=== PATIENT | female | born 1940 | race Caucasian/White ===

== ENCOUNTER 2023-07-15 10:01 | Inpatient (IN) | payer MEDICARE, OTHER, SELFPAY ==
[2023-07-14] VITALS (9 sets, daily range): BP systolic 112–179; BP diastolic 69–108; BMI 22.5; BMI 21.0
[2023-07-14 11:11] LABS: % Basophils 0.4 % (0-2); % Immature Granulocytes 0.4 % (0-0.5); % Lymphocytes 2.4 % (20.5-51.1); % Monocytes 3.8 % (1.7-9.3); Absolute Basophils 0.1 10^3/uL (0-0.2); Absolute Immature Granulocytes 0.1 10^3/uL (0-0.05); Absolute Lymphocytes 0.3 10^3/uL (1.2-3.4); Absolute Monocytes 0.5 10^3/uL (0.1-0.6); Absolute Neutrophils 11.4 10^3/uL (1.4-6.5); Hematocrit 48.7 % (37.0-47.0); Hemoglobin 16.3 g/dL (12.0-16.0); Mean Corp Hgb Conc. 33.5 g/dL (33.0-37.0); Mean Corpuscular Hgb 31.3 pg (27.0-31.0); Mean Corpuscular Volume 93.7 fL (81.0-99.0); Mean Platelet Volume 9.9 fL (7.4-10.4); Nucleated Red Blood Cells % 0 %; Platelet Count 213 10^3/uL (130-400); Red Cell Dist. Width 13.4 % (11.5-14.5); White Blood Cell Count 12.2 10^3/uL (4.8-10.8)
[2023-07-14 11:24] LABS: ALT (SGPT) 24 U/L (0-35); AST (SGOT) 41 U/L (14-36); Albumin 4.5 g/dl (3.5-5.0); Alkaline Phosphatase 99 U/L (38-126); Blood Urea Nitrogen 12 mg/dl (7-17); Calcium 10.1 mg/dl (8.4-10.2); Carbon Dioxide 29 mmol/L (22-30); Chloride 99 mmol/L (98-107); Glucose 108 mg/dl (70-99); Potassium 4.8 mmol/L (3.5-5.1); Sodium 137 mmol/L (135-145); Total Bilirubin 1.4 mg/dl (0.2-1.3); Total Protein 7.4 g/dl (6.3-8.2); eGFR > 60.00
--- NOTE | 2023-07-14 11:52 | ED.GENMED ---
History of Present Illness
General
Chief Complaint: Weakness
Source: patient
Exam Limitations: none
Time Seen by Provider: 07/14/23 11:05
Nursing documentation reviewed up to this point in time: agreed with
Travel History
Have you had any contact with someone who has COVID-19?: No
Do you have any symptoms of coronavirus? Fever > 100 degrees, chills, cough, shortness of breath, sore throat, loss of taste or smell, muscle aches, or headache?: No
History of Present Illness
History of Present Illness:
Patient presents to ED from home after she was found lying on the floor of her bedroom, by her friend, who visits her daily. Patient states that she was walking back from the restroom when she felt weak and fell down. Patient attempted to crawl
back into her bed, but was unable to make it. Patient unsure if she passed out, but also admits to having fallen multiple times recently. Patient currently is on antibiotics for UTI. Denies loss of appetite. Denies headache. Denies dizziness.
Denies chest pain or shortness of breath. Denies abdominal pain. Denies nausea or vomiting. Patient does admit to loose bowels recently.
Past History
Past History
ED Past Medical History: CVA (TIA), GERD (on pepcid), Psychiatric (a/d), Other (Parkinsons ds) and Other (Migraines); Negative Asthma or NIDDM
ED Past Surgical History: None
Social History
Tobacco: Former smoker
Alcohol: Daily (Wine 2 glasses)
Drug: None
Personal:
Living: alone
Employment: Retired
Family History
Family History: Other (Noncontributory)
Review of Systems
Review of Systems
Allergies reviewed?: Yes
All Other Systems: ROS reviewed and negative except as documented in HPI and ROS
Constitutional: Reports no symptoms; Denies fever
EENT: Reports no symptoms
Respiratory: Reports no symptoms
Cardiac: Reports no symptoms
ABD/GI: Reports diarrhea; Denies abdominal pain, nausea or vomiting
: Reports frequency and incontinence
Musculoskeletal: Reports no symptoms
Skin: Reports no symptoms
Neurological: Reports no symptoms
Phy Exam
Physical Exam
Physical Exam:
Physical Exam
General: mild distress, not acutely ill. afebrile. weak appearing
Head: nc/at. eomi
Neck: supple. normal range of motion. no midline tenderness.
Heart: s1/s2 regular rate and rhythm, no murmur. equal radial pulses.
Lungs: no acute respiratory distress. clear bilaterally
Abdomen: normal bowel sounds. not tender.
Neuro: alert and oriented. no focal neurological deficits
Skin: no rash
Psychiatric: well kept. interactive and cooperative
Extremities: no edema. no calf tenderness.
Course
Orders/Labs/Results
Orders:
Orders
07/14/23 11:01
Complete Blood Count/With Diff Urgent
Comprehensive Metabolic Panel Urgent
Creatine Phosphokinase Urgent
Comment: ADD ON
Magnesium Urgent
Comment: ADD ON
07/14/23 11:13
Add On- LAB Urgent
Tests Added?: magnesium, CPK
07/14/23 11:54
CT Cervical Spine W/o Iv Contr Urgent
Comment:
Reason For Exam: trauma with neck pain
CT Head W/o Iv Contrast Urgent
Comment:
Reason For Exam: syncope with trauma
07/14/23 11:55
Lactic Acid Urgent
Urinalysis Reflex To Culture Urgent
Date Specimen was Collected: 07/14/23
Time Specimen was Collected: 11:53
Blood Culture Q30M
SARA Source: Blood/Venous
Specimen Description:
Comment: FROM 2 SEPARATE SITES
Urine Culture Urgent
SARA Source: U
Specimen Description:
Date Specimen was Collected: 07/14/23
Time Specimen was Collected: 11:53
07/14/23 11:58
Electrocardiogram (*1) Urgent
Reason for Study: Syncope
EKG- Treatment ONCE
07/14/23 12:44
CT Abd/pelvis W Iv Cont Urgent
Comment:
Reason For Exam: LLQ pain w fever
07/14/23 13:10
Norovirus by PCR Urgent
SARA Source: Feces/Stool
Specimen Description:
Stool Culture Urgent
SARA Source: Feces/Stool
Specimen Description:
07/14/23 13:32
Add On - Microbiology Urgent
Tests Added?: urine culture
07/14/23 13:45
CefTRIAXone [Rocephin] 1,000 mg IV NOW STA
07/14/23 14:45
0.9% Sodium Chloride 1000 ml [Nss] 1,000 ml IV 100 mls/hr
07/14/23 Dinner
Regular
At Your Request: Limited Participation
07/14/23 15:51
Admit/Transfer Patient As Directed
Co-Sign Provider:
Level of Care: Observation services
Assign to:: Telemetry
Physician / Group: Hospitalist
Diagnosis: Falls, Weakness
Reason for Telemetry: Other
Other Reason for Telemetry: falls
Date to Stop Telemetry: 07/16/23
Time to Stop Telemetry: 11:00
07/14/23 15:55
Code Status As Directed
Resuscitation Status: Do not resuscitate
Reached after discussion with pt or family/Healthcare POA: Yes
Physician note:: Son and DIL at bed side
DNR Bracelet Application ONCE
07/14/23 16:55
0.9% Sodium Chloride 1000 ml [Nss] 1,000 ml IV 40 mls/hr
07/14/23 16:55
NEUROLOGY CONSULT Routine
Consulting Provider: Rayray Stone
Was physician already notified: Yes
Reason for consult: PD , falls
PSYCHIATRY CONSULT Routine
Consulting Provider: Blanca Light
Was physician already notified: Yes
Reason for consult: depression
Activity As Directed
Activity Level: Ambulate
With Assistance
Orthostatic Vital Signs As Directed
Orthostatic VS Frequency: BID
Vital Signs As Directed
Frequency: Per unit guidelines
Ot Eval And Treat Routine
Pt Eval And Treat Routine
Activity Level: Encourage Progressive Amb
DX Deep Vein Thrombosis Video Routine
07/14/23 17:07
Troponin I Q6H
Blood Culture Q30M
SARA Source: Blood/Venous
Specimen Description:
Comment: FROM 2 SEPARATE SITES
07/14/23 18:00
Enoxaparin Sodium [Lovenox] 40 mg SC QPM
07/14/23 20:00
Carbidopa/Levodopa [Sinemet 25-100] 1 tablet PO BID@1400,2000
07/14/23 22:00
Cetirizine HCl [Zyrtec] 10 mg PO HS
07/14/23 22:55
Troponin I Q6H
07/15/23 06:00
Basic Metabolic Panel IN AM
Complete Blood Count/No Diff IN AM
Creatine Phosphokinase IN AM
Magnesium IN AM
TSH IN AM
Vitamin B12 IN AM
07/15/23 08:00
Aspirin Low Dose EC [Aspir Low (Enteric Coated)] 81 mg PO DAILY
Bupropion(24Hr)Extended Releas [WELLBUTRIN XL (24 hour extended release)] 150 mg PO DAILY
Carbidopa/Levodopa [Sinemet 25-100] 1.5 tablet PO DAILY
Donepezil [Aricept] 5 mg PO DAILY
Venlafaxine Extended Release [Effexor Xr] 75 mg PO DAILY
07/16/23 11:00
DC Protocol for Telemetry ONCE
07/20/23 08:00
Ergocalciferol [Drisdol (Vitamin D2)] 50,000 units PO TU@0800
Abnormal Lab Results
07/14/23 07/14/23
11:01 11:55
WBC 12.2 H 10^3/uL
(4.8-10.8)
Hgb 16.3 H g/dL
(12.0-16.0)
Hct 48.7 H %
(37.0-47.0)
MCH 31.3 H pg
(27.0-31.0)
Abs Immat Gran (auto) 0.1 H 10^3/uL
(0-0.05)
Absolute Neuts (auto) 11.4 H 10^3/uL
(1.4-6.5)
Absolute Lymphs (auto) 0.3 L 10^3/uL
(1.2-3.4)
Neutrophils % 93.0 H %
(42.2-75.2)
Lymphocytes % 2.4 L %
(20.5-51.1)
Glucose 108 H mg/dl
(70-99)
Total Bilirubin 1.4 H mg/dl
(0.2-1.3)
AST 41 H U/L
(14-36)
Creatine Kinase 478 H U/L
(30-135)
Urine Ketones Trace A
(Negative)
07/14/23 11:01
07/14/23 11:01
Vital Signs
Initial and Last Documented VS:
Initial Vital Signs
Temp Pulse Resp BP Pulse Ox
98.1 F 108 20 139/69 97
07/14/23 10:44 07/14/23 10:44 07/14/23 10:44 07/14/23 10:44 07/14/23 10:44
Last Documented Vital Signs
Temp Pulse Resp BP Pulse Ox
99.7 F 98 16 162/88 94
07/14/23 19:49 07/14/23 19:49 07/14/23 19:49 07/14/23 19:49 07/14/23 19:49
MDM/Problems Addressed
MDM/Problems Addressed:
CT head: No acute findings. CT abdomen pelvis ordered secondary to diarrhea along with mild left-sided abdominal pain.
Patient with multiple falls recently, concerning for dehydration due to poor oral intake vs ongoing UTI vs diarrhea. Initial UA may be inconclusive due to patient having taken multiple doses of bactrim as outpatient.
Urine cx and blood cx pending.
*Critical Care Note
Total Time (30-74mins, 75-104mins- exclusive of procedures): Not Applicable
ED Attending Note
-
Portions of this chart may have been created with voice recognition software.� Occasional wrong word or��sound alike� substitutions may have occurred due to the inherent limitations of voice recognition software.
Discharge Plan
Departure
Patient Disposition: Admit
Date of Disposition: 07/14/23
Time of Disposition: 13:55
Admit to: Med/Surg
Presentation/result/management discussed w/ accepting MD/DO: Hospitalist
Discharge Problem:
Weakness, Fever, Diarrhea
Interventions
Interventions:
*Risk Screen - Suicide Last Done: 07/14/23 10:44
*General Assessment Last Done: 07/14/23 10:44
*Neglect/Abuse Screening Last Done: 07/14/23 10:44
*ED COVID-19 Vaccine History Last Done: 07/14/23 12:00
*Nursing Disposition Last Done: 07/14/23 16:42
ED- Cardiac Assessment Last Done: 07/14/23 12:00
ED- Neurological Assessment Last Done: 07/14/23 12:00
ED- Pulmonary Assessment Last Done: 07/14/23 12:00
Discharge Date and Time
Discharge Date/Time: 07/14/23 16:42
[2023-07-14 12:12] LABS: Urine Albumin Negative (Neg - Trace); Urine Bilirubin Negative (Negative); Urine Character Clear (Clear); Urine Color Yellow; Urine Glucose Negative (Negative); Urine Ketone Trace (Negative); Urine Leukocyte Negative (Negative); Urine Nitrite Negative (Negative); Urine Occult Blood Negative (Negative); Urine Specific Gravity 1.015 (<1.030); Urine Urobilinogen Negative (Neg - 1+); Urine pH 6.5 (5.0-9.0)
[2023-07-14 12:39] LABS: Lactic Acid 1.1 mmol/L (0.7-2.0)
[2023-07-14 12:43] LABS: Creatine Phosphokinase 478 U/L (30-135)
[2023-07-14] MEDS: ROCEPHIN 1000 MG IV (14:10)
--- NOTE | 2023-07-14 15:07 | HPS.HSE ---
Family Physician
-
Family Physician: Yasmeen Lopez
Chief Complaint
-
Weakness
History of Present Illness
80-year-old female was found laying on the floor of her bedroom. Patient was walking from the bathroom and felt weak and fell. Has been falling lately. She is on antibiotics to treat a UTI now. Per discussion with the family she has been
depressed lately. Also very tired appearing. Usually has a good appetite. Reportedly she had a temperature of 100.3 at home however in the ER temperature was normal. She has a caregiver from 9:00 in the morning to 2:00 Pm and then 5-8 pm in the
evening. She has a bedside commode but she does not use it often as she should.
Medical History
Past Medical History
Past Medical History: Reports Other
Additional Past Medical History:
Migraine, Parkinson disease, history of stroke, diverticulitis, history of GI bleed, arthritis, anxiety and depression
Past Surgical History: Reports Other
Additional Past Surgical History:
Root canal treatment
Social History
Tobacco: Former Smoker
Alcohol: None
Living: Alone
Employment: Retired
Family History
Family History: Not pertinent
Allergies / Home Medications
Allergies reflects when Allergies were last updated in [employer].
Home Medications with original date entered in [employer]
Allergy/Medication List:
Allergies
Allergy/AdvReac Type Severity Reaction Status Date / Time
No Known Allergies Allergy Verified 07/14/23 10:59
Home Medications
aspirin 81 mg tablet,delayed release 81 mg PO HS Blood clot prevention/tx 09/12/21
donepezil 5 mg tablet (Aricept) 5 mg PO DAILY Neurological Condition 09/13/21
acetaminophen 325 mg tablet (Tylenol) 650 mg PO Q6HPRN PRN MILD PAIN 01/20/23
bupropion HCl 150 mg 24 hr tablet, extended release 150 mg PO DAILY Mental Health 01/20/23
carbidopa 25 mg-levodopa 100 mg tablet 1 tab PO BID@1400,2000 Neurological Condition 01/20/23
carbidopa 25 mg-levodopa 100 mg tablet 1.5 tab PO DAILY Neurological Condition 01/20/23
cetirizine 10 mg tablet 10 mg PO NOON Allergies 01/20/23
ergocalciferol (vitamin D2) 1,250 mcg (50,000 unit) capsule 1,250 mcg PO TU@0800 Supplement 01/20/23
venlafaxine 75 mg capsule,extended release 24 hr 75 mg PO DAILY Mental Health 01/20/23
sulfamethoxazole 800 mg-trimethoprim 160 mg tablet (Bactrim DS) 1 tab PO BID 07/14/23
Review of Systems
-
Unable to obtain full review of systems at this time due to: Dementia
Respiratory: Denies Trouble Breathing
Cardiac: Denies Chest Pain or Palpitations
Musculoskeletal: Reports Other (Tendinitis of the shoulders)
Neurological: Reports Dizzy; Denies Headache
Physical Exam
Vital Signs
Vital Signs
Temp Pulse Resp BP Pulse Ox
98.1 F 108 20 139/69 97
07/14/23 10:44 07/14/23 10:44 07/14/23 10:44 07/14/23 10:44 07/14/23 10:44
Physical Exam
General: Conversant
Respiratory: Clear
Cardiac: S1/S2 and Regular Rhythm
GI: Soft, Non Tender and Normal Bowel Sounds
Musculoskeletal: Other (No spine tenderness)
Skin: Warm
Neuro: Awake, Alert, No Motor Deficits, Cranial Nerves Intact and Other (Cogwheel rigidity)
Laboratory Results
-
07/14/23 11:01
07/14/23 11:01
Laboratory Results
Lactic Acid 1.1 mmol/L (0.7-2.0) 07/14/23 11:55
Total Bilirubin 1.4 mg/dl (0.2-1.3) H 07/14/23 11:01
AST 41 U/L (14-36) H 07/14/23 11:01
ALT 24 U/L (0-35) 07/14/23 11:01
Alkaline Phosphatase 99 U/L (38-126) 07/14/23 11:01
Data Reviewed
-
Diagnostic Radiology: Image Personally Visualized and interpreted (Chest x-ray-no infiltrates)
CT Scan: Report Reviewed by me (CT scan of the abdomen and pelvis-Limited evaluation of intestinal tract due to lack of oral contrast and positive for intra-abdominal fat. This sigmoid diverticulosis. Mild acute inflammatory process of the sigmoid
colon cannot be excluded. Simple right renal cysts. Subcentimeter low-attenuatio) and Other (Head CT-no acute intracranial changes. Diffuse cortical atrophy with nonspecific white matter changes. CT scan of the cervical spine-slight reversal of
the normal cervical lordotic curvature. Prominent osseous degenerative changes. No fracture)
Medical Tests (Nuc Med, Echo, EKG etc): Image Personally Visualized and interpreted (EKG-sinus tachycardia with PVCs nonspecific ST-T changes.)
Impression/Plan
-
IMPRESSION/PLAN:
# Multiple falls
Patient has history of Parkinson disease
Check orthostatic vital signs
Blood cultures, urine cultures
Continue Sinemet
Neurology evaluation
Check B12, TSH
# Recently treated' UTI'
Patient could not give a urine sample but she was empirically treated with Bactrim
Hold off on any further Bactrim
Await culture
# Depression
Continue Wellbutrin, venlafaxine
Psychiatry to evaluate
#Parkinson disease-continue levodopa carbidopa
# History of migraines
# History of TIA-ASA
# Dementia-continue Aricept
# History of diverticular bleeding
# Ex-smoker
# DNR status per discussion with son and [id number]
Discussed with son and [id number] at bedside in detail all questions answered.
Discussed about observation admission-Discussed with Physician advisor also UR
[2023-07-14] MEDS: NSS 1000 IV ×2 (16:16→20:27)
[2023-07-14 17:52] LABS: Troponin I 0.017 ng/ml
[2023-07-14 19:32] LABS: COVID-19 Antigen Negative (Negative)
[2023-07-14] MEDS: ZYRTEC 10 MG PO (20:26)
[2023-07-14] MEDS: SINEMET 25-100 1 TABLET PO (20:26)
[2023-07-14] MEDS: LOVENOX 40 MG SC (20:26)
[2023-07-15] VITALS (10 sets, daily range): BP systolic 101–167; BP diastolic 56–109; PULSE 76–82; O2SAT 97
[2023-07-15] MEDS: TYLENOL 650 MG PO ×2 (03:38→16:35)
--- NOTE | 2023-07-15 07:05 | CON.NEURO4 ---
Consultation - Neurology 4
-
CONSULTING PHYSICIAN: Monty Vargas
REFERRING PHYSICIAN: ER
DICTATED BY: Monty Vargas
DATE/TIME OF REQUEST: 07/15/23
DATE/TIME OF CONSULTATION: 07/15/23
Reason for Consultation: Parkinson's disease, falls
History of Present Illness:
Patient is an 83 year old woman with history of Parkinson's disease, stroke, depression presenting to hospital after a fall. Patient has poor recollection of recent events but is able to recall a fall at home without any pains or injuries she is
aware of. She thinks had another fall in the past few weeks. She is not able to give details as to any precipitants to the fall. Denies lightheadedness or syncope with standing. Denies abdominal pain, dysuria, vomiting, cough or congestion. She
reports she sees a neurologist at [facility] regularly. She says has been on stable dose of Carbidopa/Levodopa with no recent changes in medications for Parkinson's disease. Has used walker for the past 2 months. Parkinson's disease was diagnosed about
4-5 years ago. Denies hallucinations. had two low grade fevers to 100.4 and 100.5 and is getting infectious workup, UA negative, had been on some recent antibiotics.
Past Medical History: Parkinson's disease, history of stroke, GI bleed, arthritis, depression
Surgical History: Root canal treatment
Family History: Non-contributory
Social History: Lives at home alone, has sons, no tobacco or alcohol, retired
Allergies: No known drug allergies
Review of Symptoms:
Patient denies any fever, headache, chest pain, shortness of breath, GI or symptoms.
Physical Exam:
Elderly woman, no distress, no head or neck trauma, oropharnyx clear, eyes clear, heart rate regular, breathing unlabored, abdomen soft non-tender, no lower extremity edema or rash
Neurologic Examination:
Drowsy, awakens to voice, poor recent memory recall, spontaneous speech is fluent, no naming difficulty, comprehends and obeys 2 step commands, oriented to hospital, month, not year,
CN 2-12 are normal
Motor examination shows moderate bradykinesia, minimal rigidity on the arms bilaterally, no resting tremor, power is 4/5 througout and symmetric, no pronator drift
Sensory exam normal to light touch
Reflexes absent throughout
Normal finger to nose bilaterally
Gait exam deferred
Neuro Imaging: CT head non contrast unremarkable
Impressions
1. Parkinson's disease, at least 2 recent falls. Probably cognitive impairment is present. Likely from chronic ambulatory function, requiring use of walker for past few months. Febrile illness could be playing a role in generalized weakness.
2. History of stroke on aspirin. No signs that are suggestive of a new focal neurologic deficit arousing concern for stroke, CT head non contrast unremarkable.
3. Low grade fever
Recommendations:
1. Check orthostatic vital signs
2. Continue aspirin 81 mg daily
3. Goal normotension
4. Minimize sedating medications given at risk for delirium, keep normal sleep wake cycle
5. Avoid antipsychotics which generally can worsen's Parkinson's symptoms
6. Not recommending further brain imaging
7. Keep home dosing of Parkinson's medications the same, examination today not showing significant rigidity
8. Workup fever
Discussed patient care with: Patient
[2023-07-15 07:39] LABS: Hematocrit 44.9 % (37.0-47.0); Hemoglobin 14.6 g/dL (12.0-16.0); Mean Corp Hgb Conc. 32.5 g/dL (33.0-37.0); Mean Corpuscular Hgb 30.9 pg (27.0-31.0); Mean Corpuscular Volume 95.1 fL (81.0-99.0); Mean Platelet Volume 10.3 fL (7.4-10.4); Platelet Count 163 10^3/uL (130-400); Red Blood Cell Count 4.72 10^6/uL (4.20-5.40); Red Cell Dist. Width 13.7 % (11.5-14.5); White Blood Cell Count 6.7 10^3/uL (4.8-10.8)
[2023-07-15] MEDS: WELLBUTRIN XL (24 hour extended release) 150 MG PO (08:20)
[2023-07-15] MEDS: EFFEXOR XR 75 MG PO (08:20)
[2023-07-15] MEDS: SINEMET 25-100 1.5 TABLET PO (08:21)
[2023-07-15] MEDS: ASPIR LOW (ENTERIC COATED) 81 MG PO (08:21)
[2023-07-15] MEDS: ARICEPT 5 MG PO (08:22)
[2023-07-15 09:08] LABS: Blood Urea Nitrogen 12 mg/dl (7-17); Calcium 8.9 mg/dl (8.4-10.2); Carbon Dioxide 26 mmol/L (22-30); Chloride 104 mmol/L (98-107); Creatine Phosphokinase 274 U/L (30-135); Estimated Creatinine Clearance 35 ml/min; Glucose 87 mg/dl (70-99); Magnesium 2.1 mg/dl (1.6-2.3); Potassium 3.8 mmol/L (3.5-5.1); Sodium 134 mmol/L (135-145); eGFR > 60.00
[2023-07-15 09:56] LABS: ALT (SGPT) 17 U/L (0-35); AST (SGOT) 45 U/L (14-36); Albumin 3.3 g/dl (3.5-5.0); Alkaline Phosphatase 83 U/L (38-126); Direct Bilirubin 0.1 mg/dl (0.0-0.4); Total Bilirubin 0.6 mg/dl (0.2-1.3); Total Protein 5.9 g/dl (6.3-8.2)
--- NOTE | 2023-07-15 10:00 | W.PN.UPDATE ---
Update Note
Progress Note Update
Pt has a fever and needs work up. Cultures pending. ID eval.
CPK level trending down.
Change to IN patient
--- NOTE | 2023-07-15 10:18 | PTCARENOTE ---
Assumed care of patient at AM shift change. AAOx1, oriented to self but unable to tell where she is or what year it is. Pt says we are at '[facility] NSS running at 40mL/hr, in sinus rhythm on telemetry. Patient with no complaints at this time.
Call banks in reach.
[2023-07-15 10:24] LABS: Troponin I < 0.012 ng/ml
[2023-07-15 10:46] LABS: TSH 0.54 uIU/ml (0.47-4.68)
[2023-07-15 11:05] LABS: Vitamin B12 451 pg/ml (239-931)
--- NOTE | 2023-07-15 13:05 | CON.MD ---
Addendum entered and electronically signed by Blanca Light MD 07/15/23 13:23:
psych will sign off. continue w effexor xr dose increased to 112.5 mg until she can talk to her pcp or neurologist . if there are issues while she remains in hospital please call psych,
Addendum entered and electronically signed by Blanca Light MD 07/15/23 13:21:
asked d about antidepressants . she reports mom always had depression and was on paxil for many years. the pd dx 'pushed her over the edge'. said mom tends to be a passive person and stress just builds up and she shrivels in response. mom before pd
used to be a very very active person with a great social life. her pcp 'whom she adores is retiring and she is upset about that.' mom asked her pcp to take her off paxil and try something else. a number of antidepressants were tried. d feels
there is 'not one she hasn't been on .' the neurologist at [facility] added effexor to the wellbutrin which she was already taking. 'if you are doing well on that we can take you off the wellbutrin' d says they missed the six month appt bc it was
canceled by the neurologist and rescheduled for september. pcp recommended leaving the antidep as they are until she sees the neurologist in september. so increasing the effexor is not necessarily a bad idea and she can followup with her neurologist upon
dc.
Original Note:
Consultation - Medical
-
patient seen chart reviewed. discussed w nursing. patient is an 83 year old w hx of depression and anxiety currently medicated with effexor xr 75 mg and wellbutrin 150 mg. she does not feel particularly anxious but she is discouraged bc of her
physical infirmity. she had many interests eg golf and shopping which are not options at this point. she does report lack of energy and interest . she can enjoy seeing family. she sometimes has passive si but would never harm self . sleep is
good. she does not feel she sleeps too much. appetite is okay. there is nothing to suggest psychosis
past psych hx see above. she has been rx as out pt she referred me to her d for hx of psych scrips she is also taking donepezil she reports some memory issues eg recalling names retrieving data
medical hx patient w PD for four or five years. seen by neuro at [facility]. our neuro did not recommend any changes in her meds. hx gerd migraine htn oa hld back pain w disc disease hld ibs b12 def vit d def osteoporosis hx gi bleed
fh not contributory
social hx four years ago. 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
substance abuse occasional glass of wine
mse alert ox3 cooperative and pleasant. speech and thought process nl mood is subdued affect appropriate no si no psychosis aver intelligence insight judgment good. may be mci
dx unspecified depression
plan will call d for further info. normally i would use one antidep to the max or near max or until side effect prohibit its increase then try another if sx of depression remain. i do not know how this regimen was chosen. i considered whether
wellbutrin was added to give her energy which is lacking at this point. sometimes it makes people anxious but seemingly not in her case. one might consider increase in effexor. there does not seem to be an emergent need to change her medications
and i would tend to defer decision making to her out pt provider.
[2023-07-15] MEDS: SINEMET 25-100 1 TABLET PO ×2 (13:45→21:00)
--- NOTE | 2023-07-15 14:13 | CM ---
met with patient daughter and son at bedside.patient lives alone in an apt in house.she has no steps to enter.her bed and bath is 1 step up on first level,she amb with a walker and needs assistance with adl. her pcp is dr salazar and she uses [facility] on [facility] in [place].she has IN HOME home health aides about 7 hrs per day and son will probably increase services to 20 hours per day.patient with parkison's and past hx of stroke is adm after a fall with weakness.she was seen
by therapy who have recommended snf.patient and family not sure if they want snf vs home with increased aide coverage. will send a referral to [facility] per son in case patient wants to go to snf.
Plan snf vs home with hcs.
--- NOTE | 2023-07-15 15:09 | W.PN.HOSP.TC ---
Today's Communication/Plan
-
Watch Temps
Hold AB
await Cultures
Assessment / Plan
Assessment / Plan
Looks and feels better
Sitting in a chair
CVS: S1-S2 normal
Chest: CTA B/L
Abdomen: Soft, NT / Bowel sounds present
Extremities: No edema, normal pulses
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
#Fever
Recently treated' UTI' as OP with Bactrim
Patient could not give a urine sample but she was empirically treated with Bactrim as OP
Hold off on any further Bactrim
R/O Drug fever
Virtal etiology also possible
No other source
ID eval
Await culture
# Multiple falls
Patient has history of Parkinson disease
Check orthostatic vital signs
Blood cultures, urine cultures
Continue Sinemet
Neurology evaluation appreciated
No further king
Check B12, TSH
# Depression
Continue Wellbutrin, venlafaxine DOSE INCREASED.
Psychiatry evaluated
# Parkinson disease-continue levodopa carbidopa
# History of migraines
# History of TIA-ASA
# Dementia-continue Aricept
# History of diverticular bleeding
# Ex-smoker
# DNR status per discussion with son and [id number]
Spoke to patient's daughter and updated. She feels that patient is looking a lot better today. We discussed the plan of working up fever, if she continues to improve family wants her to go home not to rehab.
Anticipated Discharge: Within 24 hours
Subjective/Interval History
-
Date of Service: July 15, 2023
Objective Data
-
Labs:
Laboratory Results
07/15/23
07:11
WBC 6.7
Hgb 14.6
Hct 44.9
Plt Count 163 D
Sodium 134 L
Potassium 3.8
Chloride 104
Carbon Dioxide 26
BUN 12
Creatinine 0.9
Glucose 87
Calcium 8.9
Total Bilirubin 0.6
AST 45 H
ALT 17
Alkaline Phosphatase 83
Vital Signs:
Vital Signs
Temp Pulse Resp BP Pulse Ox
97.7 F 85 16 132/56 95
07/15/23 11:28 07/15/23 11:28 07/15/23 11:28 07/15/23 11:28 07/15/23 11:28
--- NOTE | 2023-07-15 17:01 | CON.ID ---
Consultation
-
Date/Time Consultation Requested: 07/15/2023 09:14
Date/Time Consultation Performed: 07/15/2023 1650
Requesting Provider: Dr. Cee
Performing Provider: Dr. Choi
Reason for Consultation: Fever
Chief Complaint / Past History
History of Present Illness
Leigha Cedeno is an 83-year-old female with a significant past medical history of Parkinson's disease being evaluated at the request of Dr. Cee in regards to fever. History is obtained from chart review, along with patient interview.
The patient reports that she lives alone, but is checked in by multiple people during the day. On 07/13 she presented to the emergency room after being found on the bathroom floor. She reports that she had gone to use the bathroom and while in the
ER she passed out. She is not sure whether she lost consciousness. She is not sure, but thinks she may have fallen onto her left side. Ultimately, a friend checked in on her, found her on the floor (she believes she was on the floor approximately
6 hours), and EMS was called.
In the emergency room she was found to have a low-grade leukocytosis (which is now resolved) but since admission she has had several episodes of low-grade fevers.
At present she denies any cough or congestion. She admits to left shoulder discomfort and reports that it is difficult to move her arm. She denies any nausea, vomiting or diarrhea.
Past History
Additional Past Medical History:
Hx CVA/TIA
GERD
Anxiety/depression
Parkinson's disease
Migraines
Past Surgical History: None
Allergy History:
No Known Allergies Allergy (Verified 07/14/23 10:59)
Medications Reviewed: Yes
Current Antibiotics:
none
Social History
Tobacco: Former Smoker
Alcohol: Daily
Drug: None
Personal:
Living: Alone
Employment: Retired
Review of Systems
Vital Signs
Temp Pulse Resp BP Pulse Ox
97.8 F 83 20 101/80 98
07/15/23 15:15 07/15/23 15:15 07/15/23 15:15 07/15/23 15:15 07/15/23 15:15
Physical Exam
Physical Exam
Constitutional: No Acute Distress, Comfortable, Chronically Ill and Non-toxic
Eyes: Pupils Equal, Pupils Round, No Conjunctival Hemorrhage and Sclera Anicteric
Oral: No Thrush and No Ulcers
Cardiovascular: Regular Rate and S1/S2; Negative S3/S4 or Murmur
Pulmonary: Clear; Negative Wheezes, Rales or Rhonchi
Gastrointestinal: Soft, Non Tender, Non Distended, Normal Bowel Sounds, No Rebound and No Guarding
Genito-Urinary: Negative Vieyra
Extremities: Negative Edema, Cyanosis or Erythema
Musculoskeletal: Other (pain with left shoulder PROM)
Skin: Warm and Dry; Negative Rash or Jaundice
Neurological: Awake and Alert
Psychological: Calm
Lab / Diagnostic Study Results
07/15/23 07:11
07/15/23 07:11
Abs Immat Gran (auto) 0.1 10^3/uL (0-0.05) H 07/14/23 11:01
Absolute Neuts (auto) 11.4 10^3/uL (1.4-6.5) H 07/14/23 11:01
Absolute Lymphs (auto) 0.3 10^3/uL (1.2-3.4) L 07/14/23 11:01
Absolute Monos (auto) 0.5 10^3/uL (0.1-0.6) 07/14/23 11:01
Absolute Basos (auto) 0.1 10^3/uL (0-0.2) 07/14/23 11:01
Immature Gran % 0.4 % (0-0.5) 07/14/23 11:01
Neutrophils % 93.0 % (42.2-75.2) H 07/14/23 11:01
Lymphocytes % 2.4 % (20.5-51.1) L 07/14/23 11:01
Monocytes % 3.8 % (1.7-9.3) 07/14/23 11:01
Eosinophils % 0.0 % (0-6) 07/14/23 11:01
Basophils % 0.4 % (0-2) 07/14/23 11:01
Lactic Acid 1.1 mmol/L (0.7-2.0) 07/14/23 11:55
Microbiology Results
Micro:
07/14/23 11:55 Blood Culture - Preliminary
Blood/Venous No Growth in 24 hours- Final report to follow
07/14/23 11:55 Urine Culture - Final
Urine NO GROWTH
07/14/23 18:34 Influenza Types A & B (KAMILAH) - Final
Nasal Swab Negative for Influenza A & B, NAAT
Negative results must be combined with clinical observations
and patient history.
Nucleic Acid Amplification test (NAAT)performed on the
[employer] platform.
07/14/23 17:07 Blood Culture - Pending
Blood/Venous
Imaging:
07/14/2023 CT abdomen/pelvis without contrast:Overall limited evaluation of intestinal tract as a result of several factors most prominently lack of oral contrast and paucity of intra-abdominal fat. Sigmoid diverticulosis. Mild acute
inflammatory/infectious process of the sigmoid colon cannot be entirely excluded on the basis of this study. Simple appearing right renal cysts and additional bilateral subcentimeter low-attenuation renal lesions too small to characterize. No
findings to suggest obstructive uropathy bilaterally. Subcentimeter low-attenuation right lobe hepatic lesion too small to characterize.
Assessment / Plan
Low-grade fevers
Leukocytosis; improved
Status post fall
Hx CVA/TIA
GERD
Anxiety/depression
Parkinson's disease
Migraines
Recommendations:
At present, no immediately identifiable source of fever.
Would continue to monitor off of antibiotics for the present. Repeat blood cultures should further fever (>= 100.5 degrees) develop.
Check x-ray of left shoulder given noted discomfort with PROM
Continue to monitor white count.
[2023-07-15] MEDS: LOVENOX 40 MG SC (18:11)
[2023-07-15] MEDS: ZYRTEC 10 MG PO (21:08)
[2023-07-16 03:13] VITALS: BP 146/89
[2023-07-16 07:58] VITALS: BP 173/93
[2023-07-16] MEDS: EFFEXOR XR 112.5 MG PO (08:03)
[2023-07-16] MEDS: ARICEPT 5 MG PO (08:04)
[2023-07-16] MEDS: WELLBUTRIN XL (24 hour extended release) 150 MG PO (08:04)
[2023-07-16] MEDS: ASPIR LOW (ENTERIC COATED) 81 MG PO (08:04)
[2023-07-16] MEDS: SINEMET 25-100 1.5 TABLET PO (08:04)
[2023-07-16] MEDS: TYLENOL 650 MG PO (08:04)
[2023-07-16 09:38] VITALS: BP 132/73; BP 132/77; BP 142/73; PULSE 73; PULSE 80; PULSE 82
[2023-07-16 11:55] VITALS: BP 142/75
[2023-07-16] MEDS: SINEMET 25-100 1 TABLET PO (14:44)
--- NOTE | 2023-07-16 15:25 | W.PN.ID1 ---
Date of Service
Date of Service: July 16, 2023
Today's Communication
Observe off antibiotics.
Assessment / Plan
Low-grade fevers
- possible viral component. Afebrile x 24h
Leukocytosis; improved
Status post fall
Hx CVA/TIA
GERD
Anxiety/depression
Parkinson's disease
Migraines
Recommendations:
At present, no immediately identifiable source of fever.
Would continue to monitor off of antibiotics for the present. Repeat blood cultures should further fever (>= 100.5 degrees) develop.
Left shoulder x-ray with suspected rotator cuff issues. May consider outpatient Orthopedic evaluation.
Chief Complaint
-: Fever
Subjective / Review of Systems
Review of Systems: No Fever and No Chills
Vital Signs / Physical Exam
Vital Signs
Vital Signs
Temp Pulse Resp BP Pulse Ox
98.8 F 83 16 142/75 96
07/16/23 11:55 07/16/23 11:55 07/16/23 11:55 07/16/23 11:55 07/16/23 11:55
Physical Exam
Constitutional: No Acute Distress, Comfortable, Chronically Ill, Non-toxic and Cachetic
Eyes: Sclera Anicteric
Pulmonary: Non Labored
Gastrointestinal: Non Distended
Neurological: Awake and Alert
Psychological: Calm
Objective Data
Lab Data
Lab Results
07/15/23 07:11
07/15/23 07:11
Estimated Creat Clear 35 ml/min 07/15/23 07:11
Lactic Acid 1.1 mmol/L (0.7-2.0) 07/14/23 11:55
Total Bilirubin 0.6 mg/dl (0.2-1.3) 07/15/23 07:11
AST 45 U/L (14-36) H 07/15/23 07:11
ALT 17 U/L (0-35) 07/15/23 07:11
Alkaline Phosphatase 83 U/L (38-126) 07/15/23 07:11
Most recent labs reviewed.
Micro Results:
07/16/23 13:53 - Pending
Feces/Stool
07/16/23 13:49 Salmonella/Shigella Culture - Pending
Feces/Stool Campylobacter Culture - Pending
Shiga Toxin Test - Pending
07/14/23 11:55 Blood Culture - Preliminary
Blood/Venous No Growth in 48 hours- Final report to follow
07/16/23 04:26 MRSA Screen - Pending
Nose
07/14/23 17:07 Blood Culture - Preliminary
Blood/Venous No Growth in 24 hours- Final report to follow
07/14/23 11:55 Urine Culture - Final
Urine NO GROWTH
07/14/23 18:34 Influenza Types A & B (KAMILAH) - Final
Nasal Swab Negative for Influenza A & B, NAAT
Negative results must be combined with clinical observations
and patient history.
Nucleic Acid Amplification test (NAAT)performed on the
[employer] platform.
Imaging:
07/14/2023 CT abdomen/pelvis without contrast:Overall limited evaluation of intestinal tract as a result of several factors most prominently lack of oral contrast and paucity of intra-abdominal fat. Sigmoid diverticulosis. Mild acute
inflammatory/infectious process of the sigmoid colon cannot be entirely excluded on the basis of this study. Simple appearing right renal cysts and additional bilateral subcentimeter low-attenuation renal lesions too small to characterize. No
findings to suggest obstructive uropathy bilaterally. Subcentimeter low-attenuation right lobe hepatic lesion too small to characterize.
Care Review
Plan reviewed with: Physician (Hospitalist)
[2023-07-16 15:43] VITALS: BP 134/70
--- NOTE | 2023-07-16 16:22 | W.PN.HOSP.TC ---
Addendum entered and electronically signed by Cruz Cee MD 07/16/23 16:28:
Daughter states that patient has had shoulder injury possibly rotator cuff. Outpatient orthopedic follow-up
Original Note:
Today's Communication/Plan
-
Discharge
Assessment / Plan
Assessment / Plan
Looks and feels better
Sitting in a chair, mleaning to right
CVS: S1-S2 normal
Chest: CTA B/L
Abdomen: Soft, NT / Bowel sounds present
Extremities: No edema, normal pulses
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
Ambulates with a walker to the bathroom with supervision
#Fever
Recently treated' UTI' as OP with Bactrim
Patient could not give a urine sample but she was empirically treated with Bactrim as OP
Hold off on any further Bactrim
R/O Drug fever
Virtal etiology also possible
No other source
ID eval appreciated
Discussed with Dr. Jimbo gonzalez for discharge
Cultures are negative
# Multiple falls
Patient has history of Parkinson disease
Continue Sinemet
Neurology evaluation appreciated
No further king
While I noticed that the patient was leaning onto the right while seated daughter at bedside and stated that she was leaning onto the left at home watching TV. It is a habit
She does not think this is new
Normal TSH and B12
# Depression
Continue Wellbutrin, venlafaxine DOSE INCREASED.
Psychiatry evaluated
# Parkinson disease-continue levodopa carbidopa
# History of migraines
# History of TIA-ASA
# Dementia-continue Aricept
# History of diverticular bleeding
# Ex-smoker
# DNR status per discussion with son and [id number]
Spoke to patient's daughter and updated. Grand sons at bedside
They want to take the patient home. They are getting a caregiver for overnight for the patient as well.
Discussed with infectious disease
Discussed with nursing
Okay for discharge
Discharge time 34 min
Anticipated Discharge: Today
Subjective/Interval History
-
Date of Service: July 16, 2023
Objective Data
-
Vital Signs:
Vital Signs
Temp Pulse Resp BP Pulse Ox
97.6 F 80 16 134/70 98
07/16/23 15:43 07/16/23 15:43 07/16/23 15:43 07/16/23 15:43 07/16/23 15:43
I&O
07/15/23 07/16/23 07/17/23
06:59 06:59 06:59
Intake Total 480 / 480
Balance 480 / 480
--- NOTE | 2023-07-16 16:26 | W.DS.TRANS ---
Addendum entered and electronically signed by Cruz Cee MD 07/16/23 16:33:
Dictation- [id number]
Original Note:
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
-
Discharge Instructions:
Discharge Diagnosis/Procedures Fever, falls, depression, Parkinson disease,
history of migraines, history of TIA, dementia,
diverticulosis
Diet As tolerated
Activity As tolerated,With assistance
Driving Restrictions No driving
Other Services VN,PT,OT
Instructions:
Stand-Alone Forms:
Changes to Home Medications: Yes
Discharge Medications:
DC Medications w/original date entered in [employer]
aspirin 81 mg tablet,delayed release 81 mg PO HS Blood clot prevention/tx 09/12/21
donepezil 5 mg tablet (Aricept) 5 mg PO DAILY Neurological Condition 09/13/21
acetaminophen 325 mg tablet (Tylenol) 650 mg PO Q6HPRN PRN MILD PAIN 01/20/23
bupropion HCl 150 mg 24 hr tablet, extended release 150 mg PO DAILY Mental Health 01/20/23
carbidopa 25 mg-levodopa 100 mg tablet 1 tab PO BID@1400,2000 Neurological Condition 01/20/23
carbidopa 25 mg-levodopa 100 mg tablet 1.5 tab PO DAILY Neurological Condition 01/20/23
cetirizine 10 mg tablet 10 mg PO NOON Allergies 01/20/23
ergocalciferol (vitamin D2) 1,250 mcg (50,000 unit) capsule 1,250 mcg PO TU@0800 Supplement 01/20/23
venlafaxine 37.5 mg capsule,extended release 24 hr 112.5 mg (3 x 37.5 mg) PO DAILY Depression #30 caps 07/16/23
Home Medication Changes
Effexor dose increased
Pending Results: No
--- NOTE | 2023-07-16 17:03 | CM ---
met with patient at bedside.she told me she is going home as opposed to facility for snf.i have placed numerous calls and left vmm for either daughter delmi or son patric to find out whether patient will go to snf or home with additional home aides
through [facility] .i received a call from floor nurse to tell me patient is being discharged home.i called daughter on her cell phone and left her a vmm to explain the imm letter and to find out if she wanted hcs.i did not receive a call back.patient
dc home with daughter delmi with [facility] nurses aides.
--- NOTE | 2023-07-18 11:20 | W.PN.UPDATE ---
Addendum entered and electronically signed by Cruz Cee MD 07/18/23 13:31:
Culture result came back as Pseudomonas.
Per discussion with ID antibiotics changed to Cipro 250 twice daily for 10 days.
Called family back and they had not [place] dcefdinir.
Antibiotics changed to Cipro and sent.
Also discussed with daughter to hold Aricept until she completes Cipro.
Discussed with that there is only 1 oral antibiotic which is available for Pseudomonas. She is aware that if Pseudomonas is not sensitive she may need IV antibiotic.
Patient never received therapy for Pseudomonas and yet got better. Therefore unclear if this is true infection or not.
She already got Blood CX. Wait for that
Original Note:
Update Note
Progress Note Update
Microbiology informed that 1 set of blood cultures from 07/14/2023 coming back positive with gram-negative rods.
Called and spoke to patient's daughter who stated that patient is doing okay she still has mild confusion
Discussed with Dr. Choi.
Per recommendation we will start cefdinir 300 mg p.o. twice daily after repeat cultures drawn today.
I called and spoke to patient's daughter and a second phone call to granddaughter who is in medical field. Discussed about the information we have and about repeat cultures. Option to come back to get admitted discussed however family is not
interested in that. They feel that she does better at home requested oral antibiotics be given. Therefore cefdinir was called in.
Discussed that without treatment infection can progress
Daughter also feels that the patient has no quality of life.
Recommend that she discuss with neurologist and see if patient is a candidate for hospice given her dementia and Parkinson disease.
I dropped a prescription for lab work with the ER registration .
Family will bring patient for blood culture.
--- NOTE | 2023-07-20 17:15 | W.PN.UPDATE ---
Update Note
Progress Note Update
Pt improving per daughter.
discuused to continue AB
== END 2023-07-16 18:27 | disposition home health service (06) | DRG 864 ==
LOC: 4 WEST ACU 10:01
PROVIDERS: ADMITTING PHYSICIAN Hospitalist; CONSULT PHYSICIAN Internal Medicine Infectious Disease; CONSULT PHYSICIAN Psychiatry & Neurology Psychiatry; EMERGENCY PHYSICIAN Emergency Medicine; FAMILY PHYSICIAN Internal Medicine; OTHER PHYSICIAN Student in an Organized Health Care Education/Training Program
DX: R50.9 Fever, unspecified (principal); F02.84 Dementia in other diseases classified elsewhere, unspecified severity, with anxiety; F02.83 Dementia in other diseases classified elsewhere, unspecified severity, with mood disturbance; Z87.891 Personal history of nicotine dependence; Z66 Do not resuscitate; G20.A1 Parkinson's disease without dyskinesia, without mention of fluctuations; Z86.73 Personal history of transient ischemic attack (TIA), and cerebral infarction without residual deficits; Z79.82 Long term (current) use of aspirin; K57.30 Diverticulosis of large intestine without perforation or abscess without bleeding; Z11.52 Encounter for screening for COVID-19; M25.511 Pain in right shoulder; K76.9 Liver disease, unspecified
CPT/HCPCS: 70450; 72125; 73030; 74177; 80053; 81003; 82248; 82550; 82607; 83605; 83735; 84443; 84484; 85025; 85027; 87040; 87045; 87046; 87070; 87086; 87149; 87186; 87205; 87427; 87502; 87798; 87811; 93005; 96374; 97163; 97167; 99285; Q9967

== ENCOUNTER → 2023-07-18 12:19 | Outpatient (REF) | payer MEDICARE, OTHER, SELFPAY ==
--- NOTE | 2023-07-20 10:44 | W.PN.UPDATE ---
Addendum entered and electronically signed by Cruz Cee MD 07/20/23 16:41:
Called daughter again. Went to message. Left message
Original Note:
Update Note
Progress Note Update
Pseudomonas Sensitive to Cipro.
Repeat CX negative
Called daughter to check on pt .
Went to message . Will try later.
== END ==
LOC: EMR 12:19
PROVIDERS: ATTENDING PHYSICIAN Hospitalist
DX: K57.30 Diverticulosis of large intestine without perforation or abscess without bleeding (principal); K76.9 Liver disease, unspecified; R50.9 Fever, unspecified
CPT/HCPCS: 87040

== ENCOUNTER 2023-09-17 08:57 | Emergency (ER) | payer MEDICARE, OTHER, SELFPAY ==
[2023-09-17 09:03] VITALS: BP 180/92; BMI 20.5
[2023-09-17 09:03] LABS: Glucose - Point of Care 85 mg/dl (70-99)
--- NOTE | 2023-09-17 09:09 | ED.GENMED ---
History of Present Illness
General
Chief Complaint: Weakness
Time Seen by Provider: 09/17/23 09:09
History of Present Illness
History of Present Illness:
HPI: Patient came in by ambulance due to weakness. She lives at home and has care at home. I spoke to her daughter as well. She has had recent high blood pressure readings and was started on amlodipine 2.5 mg by PMD but only took 1 dose so far.
She also has chronic insomnia. She has Parkinson's. Although EMS reported some concern for speech changes, daughter states this is an ongoing issue for the past 25 years and neurology felt it was related to anxiety.
EXAM:
GENERAL: Appears somewhat chronically ill but in no significant distress, she appears generally weak and debilitated
HEENT: Moist oral mucosa
CARDIOVASCULAR: No murmurs, normal heart rate, regular rhythm, No chest wall tenderness
PULMONARY: No respiratory distress, breath sounds are clear and equal
ABDOMEN: Soft with no peritoneal signs, no tenderness
NEUROLOGIC: Fair strength all extremities, no coordination deficits
PSYCHIATRIC: She struggled with naming the month but ultimately got a correct and knows she is at [facility], she has reasonable insight and judgment
EXTREMITIES: Nontender, no edema, moves all extremities equally
SKIN: No rash, no lesions
TIME OF INITIAL ENCOUNTER: 9:10 AM
NUMBER AND COMPLEXITY OF PROBLEMS ADDRESSED AT THE ENCOUNTER
� Chronic conditions affecting care: Parkinson's, high blood pressure, hyperlipidemia, has had GI bleed, diverticular disease
� Acute Exacerbation and/or Progression of Chronic Illness: This is an acute problem
� Differential Diagnosis includes: Dehydration, progression of Parkinson's, hypertensive urgency
AMOUNT AND/OR COMPLEXITY OF DATA TO BE REVIEWED AND ANALYZED
� I performed an independent evaluation of and my interpretation is:
EKG: Sinus 65, left axis deviation, poor R wave progression, nonspecific ST abnormality
CT:
X-rays:
Laboratory Studies: White blood cell count is 5.9, hemoglobin is normal at 16, chemistries are unremarkable with exception of slightly elevated carbon dioxide of 32, urinalysis shows no sign of infection
Other:
� Review of other/old records: I reviewed records, the patient was admitted here 2 months ago with fever and weakness
� Clinical information was obtained by an independent historian: Daughter and son-in-law at bedside
� Prescriptions/Medications Considered but not given:
� Further testing considered but not performed:
RISK OF COMPLICATIONS AND/OR MORBIDITY OR MORTALITY OF PATIENT MANAGEMENT
� Social determinants of health affecting care: Lives at home by herself
� Discussion with other providers:
� Escalation of care including admission/observation vs risk of discharge considered: Blood sugar upon arrival is 85. Labs are relatively unremarkable. She was given IV fluids. On reassessment at 10:50 AM, she does appear
somewhat more alert. She has been hypertensive here. I encouraged family to start the 5 mg dosing of amlodipine as she was given a total of 5 mg of amlodipine (between what we have here and what the patient took of her own medication).
Past History
Past History
ED Past Medical History: CVA (TIA), GERD (on pepcid), Psychiatric (a/d), Other (Parkinsons ds) and Other (Migraines); Negative Asthma or NIDDM
ED Past Surgical History: None
Social History
Tobacco: Former smoker
Alcohol: Daily (Wine 2 glasses)
Drug: None
Personal:
Living: alone
Employment: Retired
Family History
Family History: Other (Noncontributory)
Phy Exam
Physical Exam
Physical Exam:
See HPI
Course
Orders/Labs/Results
Orders:
Orders
09/17/23 09:01
EKG [Electrocardiogram (*1)] Urgent
Reason for Study: Fatigue / Weakness
EKG- Treatment ONCE
09/17/23 09:20
Amlodipine [Norvasc] 2.5 mg PO NOW STA
09/17/23 09:21
CMP [Comprehensive Metabolic Panel] Urgent
Complete Blood Count/With Diff Urgent
Urinalysis Reflex To Culture Urgent
Date Specimen was Collected: 09/17/23
Time Specimen was Collected: 09:11
Comment: straight cath
0.9% Sodium Chloride 500 ml [Nss] 500 ml IV BOLUS
Abnormal Lab Results
09/17/23
09:21
Hct 51.0 H %
(37.0-47.0)
MCHC 31.4 L g/dL
(33.0-37.0)
Carbon Dioxide 32 H mmol/L
(22-30)
Glucose 105 H mg/dl
(70-99)
09/17/23 09:21
09/17/23 09:21
Vital Signs
Initial and Last Documented VS:
Initial Vital Signs
Temp Pulse Resp BP Pulse Ox
98.0 F 72 19 180/92 97
09/17/23 09:03 09/17/23 09:03 09/17/23 09:03 09/17/23 09:03 09/17/23 09:03
Last Documented Vital Signs
Temp Pulse Resp BP Pulse Ox
98.0 F 64 21 153/82 98
09/17/23 09:03 09/17/23 10:30 09/17/23 10:30 09/17/23 10:00 09/17/23 09:45
*Critical Care Note
Total Time (30-74mins, 75-104mins- exclusive of procedures): Not Applicable
ED Attending Note
-
Portions of this chart may have been created with voice recognition software.� Occasional wrong word or��sound alike� substitutions may have occurred due to the inherent limitations of voice recognition software.
Discharge Plan
Departure
Patient Disposition: Home (Routine Discharge)
Date of Disposition: 09/17/23
Time of Disposition: 10:55
Patient with high blood pressure during this ER visit?: Yes
Discharge Problem:
Weakness
Prescriptions:
No Action
aspirin 81 MG tablet,delayed release (DR/EC)
81 mg PO HS
donepezil [Aricept] 5 MG tablet
5 mg PO DAILY
cetirizine 10 mg tablet
10 mg PO NOON
carbidopa-levodopa 25-100 mg tablet
1.5 tab PO DAILY
bupropion HCl 150 mg tablet extended release 24 hr
150 mg PO DAILY
acetaminophen [Tylenol] 325 mg Tablet
650 mg PO Q6HPRN PRN (Reason: MILD PAIN)
ergocalciferol (vitamin D2) 1,250 mcg (50,000 unit) capsule
1,250 mcg PO TU@0800
carbidopa-levodopa 25-100 mg tablet
1 tab PO BID@1400,2000
venlafaxine 37.5 mg Capsule,Extended Release 24hr
112.5 mg PO DAILY Qty: 30 0RF
ciprofloxacin HCl [Cipro] 250 mg tablet
250 mg PO Q12H Qty: 20 0RF
Referrals:
Yasmeen Lopez MD [Family Provider] -
Activity Restrictions/Additional Instructions:
Regarding the amlodipine (Norvasc) dosing, I recommend that you check the blood pressure this evening. If the blood pressures are not below 120 around 8 PM tonight, I recommend that she continues 5 mg of amlodipine every morning. Follow-up with
PMD. Return here if worse.
Discharge Date and Time
Print Language: BHUTANESE
[2023-09-17 09:28] VITALS: BP 164/86
[2023-09-17 09:39] LABS: % Basophils 0.7 % (0-2); % Eosinophils 3.1 % (0-6); % Immature Granulocytes 0.2 % (0-0.5); % Lymphocytes 26.4 % (20.5-51.1); % Monocytes 6.1 % (1.7-9.3); % Neutrophils 63.5 % (42.2-75.2); Absolute Eosinophils 0.2 10^3/uL (0-0.7); Absolute Lymphocytes 1.6 10^3/uL (1.2-3.4); Absolute Monocytes 0.4 10^3/uL (0.1-0.6); Absolute Neutrophils 3.8 10^3/uL (1.4-6.5); Mean Corp Hgb Conc. 31.4 g/dL (33.0-37.0); Mean Corpuscular Hgb 30.7 pg (27.0-31.0); Mean Corpuscular Volume 97.7 fL (81.0-99.0); Mean Platelet Volume 9.4 fL (7.4-10.4); Nucleated Red Blood Cells % 0 %; Platelet Count 212 10^3/uL (130-400); Red Blood Cell Count 5.22 10^6/uL (4.20-5.40); Red Cell Dist. Width 13.4 % (11.5-14.5); White Blood Cell Count 5.9 10^3/uL (4.8-10.8)
[2023-09-17] MEDS: NORVASC 2.5 MG PO (09:42)
[2023-09-17 09:49] LABS: ALT (SGPT) < 10 U/L (0-35); AST (SGOT) 25 U/L (14-36); Albumin 4.2 g/dl (3.5-5.0); Alkaline Phosphatase 97 U/L (38-126); Blood Urea Nitrogen 15 mg/dl (7-17); Calcium 9.9 mg/dl (8.4-10.2); Carbon Dioxide 32 mmol/L (22-30); Chloride 103 mmol/L (98-107); Estimated Creatinine Clearance 45 ml/min; Glucose 105 mg/dl (70-99); Potassium 4.8 mmol/L (3.5-5.1); Sodium 140 mmol/L (135-145); Total Bilirubin 1.1 mg/dl (0.2-1.3); Total Protein 6.9 g/dl (6.3-8.2); eGFR > 60.00
[2023-09-17 09:57] LABS: Urine Albumin Negative (Neg - Trace); Urine Bilirubin Negative (Negative); Urine Character Clear (Clear); Urine Color Yellow; Urine Glucose Negative (Negative); Urine Ketone Negative (Negative); Urine Leukocyte Negative (Negative); Urine Nitrite Negative (Negative); Urine Occult Blood Negative (Negative); Urine Urobilinogen Negative (Neg - 1+)
[2023-09-17 10:00] VITALS: BP 153/82
[2023-09-17] MEDS: NSS 500 IV (10:51)
[2023-09-17 10:52] VITALS: BP 162/84
[2023-09-17 11:00] VITALS: BP 173/86
== END 2023-09-17 12:13 | disposition home or self-care (01) ==
LOC: EMR 08:57
PROVIDERS: EMERGENCY PHYSICIAN Emergency Medicine; FAMILY PHYSICIAN Internal Medicine
DX: R53.1 Weakness (principal); G20.A1 Parkinson's disease without dyskinesia, without mention of fluctuations; I10 Essential (primary) hypertension; K21.9 Gastro-esophageal reflux disease without esophagitis; Z86.73 Personal history of transient ischemic attack (TIA), and cerebral infarction without residual deficits; Z87.891 Personal history of nicotine dependence
CPT/HCPCS: 99283; 96360; 80053; 81003; 82962; 85025; 93005

== ENCOUNTER 2024-04-16 12:17 | Emergency (ER) | payer MEDICARE, OTHER, SELFPAY ==
[2024-04-16 12:22] VITALS: BP 143/82
--- NOTE | 2024-04-16 14:04 | ED.GENMED ---
History of Present Illness
General
Chief Complaint: Musculo-Skeletal Complaint
Source: patient
Exam Limitations: none
Time Seen by Provider: 04/16/24 13:23
Nursing documentation reviewed up to this point in time: agreed with
History of Present Illness
History of Present Illness:
84-year-old female presenting to the emergency department after trip and fall onto her left shoulder did not hit her head did not hit her neck no additional concerns other than shoulder discomfort.
Past History
Past History
ED Past Medical History: CVA (TIA), GERD (on pepcid), Psychiatric (a/d), Other (Parkinsons ds) and Other (Migraines); Negative Asthma or NIDDM
ED Past Surgical History: None
Social History
Tobacco: Former smoker
Alcohol: Daily (Wine 2 glasses)
Drug: None
Personal:
Living: alone
Employment: Retired
Family History
Family History: Other (Noncontributory)
Review of Systems
Review of Systems
Allergies reviewed?: Yes
All Other Systems: ROS reviewed and negative except as documented in HPI and ROS
Phy Exam
Physical Exam
Physical Exam:
GENERAL: Alert , in no apparent distress
EYE: pupils equal and reactive
NECK: Supple, no significant adenopathy.
ENT: o/p clr, mmm.
CARDIAC: Regular rate and rhythm .
LUNGS: Clear breath sounds bilaterally, no acute respiratory distress, no wheezes/rales/rhonchi
ABDOMEN: Soft, without focal tenderness, no r/g, no cvat
NEUROLOGICAL: Alert and oriented, no focal neuro deficits
SKIN: Warm and dry, skin intact.
MUSCULOSKELETAL: Mild discomfort throughout the left shoulder no specific point tenderness no redness or warmth increased with any range of motion no edema, well perfused.
PSYCH: Normal and appropriate interaction.
Course
Orders/Labs/Results
Orders:
Orders
04/16/24 12:24
Shoulder, Left, Trauma CR [CR Shoulder, Trauma - Left] Urgent
Comment:
Reason For Exam: fall
Vital Signs
Initial and Last Documented VS:
Initial Vital Signs
Temp Pulse Resp BP Pulse Ox
98 F 77 16 143/82 98
04/16/24 12:22 04/16/24 12:22 04/16/24 12:22 04/16/24 12:22 04/16/24 12:22
Last Documented Vital Signs
Temp Pulse Resp BP Pulse Ox
98 F 77 16 143/82 98
04/16/24 12:22 04/16/24 12:22 04/16/24 12:22 04/16/24 12:22 04/16/24 12:22
MDM/Problems Addressed
MDM/Problems Addressed:
84-year-old female presenting to the emergency department after trip and fall onto her left shoulder did not hit her head did not hit her neck no additional concerns other than shoulder discomfort. X-ray was performed that did not show signs of
fracture. Did show evidence of potential rotator cuff injury. Patient advised for icing and rest and close follow-up with primary care and orthopedics as needed. Return precautions given.
*Critical Care Note
Total Time (30-74mins, 75-104mins- exclusive of procedures): Not Applicable
ED Attending Note
-
Portions of this chart may have been created with voice recognition software.� Occasional wrong word or��sound alike� substitutions may have occurred due to the inherent limitations of voice recognition software.
Discharge Plan
Departure
Patient Disposition: Home (Routine Discharge)
Date of Disposition: 04/16/24
Time of Disposition: 14:08
Patient with high blood pressure during this ER visit?: No
Condition: Good
Covid-19: Not Applicable
Discharge Problem:
Shoulder sprain
Instructions: Sprain (DC)
Prescriptions:
No Action
aspirin 81 MG tablet,delayed release (DR/EC)
81 mg PO HS
donepezil [Aricept] 5 MG tablet
5 mg PO DAILY
cetirizine 10 mg tablet
10 mg PO NOON
carbidopa-levodopa 25-100 mg tablet
1.5 tab PO DAILY
bupropion HCl 150 mg tablet extended release 24 hr
150 mg PO DAILY
acetaminophen [Tylenol] 325 mg Tablet
650 mg PO Q6HPRN PRN (Reason: MILD PAIN)
ergocalciferol (vitamin D2) 1,250 mcg (50,000 unit) capsule
1,250 mcg PO TU@0800
carbidopa-levodopa 25-100 mg tablet
1 tab PO BID@1400,2000
venlafaxine 37.5 mg Capsule,Extended Release 24hr
112.5 mg PO DAILY Qty: 30 0RF
ciprofloxacin HCl [Cipro] 250 mg tablet
250 mg PO Q12H Qty: 20 0RF
Referrals:
Yasmeen Wu MD [Family Provider] -
Neno Mijares MD [Active] - Follow up in 5-7 days
Activity Restrictions/Additional Instructions:
You came to the emergency department today with concerns of shoulder discomfort after a fall. X-ray did not show fracture. Likely is a sprain. Please rest ice and slowly increase activity over the next week or so. Please follow-up closely with
orthopedics for ongoing issues. Return for any worsening, new or concerning symptoms.
Interventions
Interventions:
*Risk Screen - Suicide Last Done: 04/16/24 12:22
*General Assessment Last Done: 04/16/24 13:21
*Neglect/Abuse Screening Last Done: 04/16/24 12:22
*ED COVID-19 Vaccine History Last Done: 04/16/24 13:21
ED-Musculoskeletal Assessment Last Done: 04/16/24 13:21
Discharge Date and Time
Print Language: NEPALI
[2024-04-16 14:36] VITALS: BP 140/80
== END 2024-04-16 14:37 | disposition home or self-care (01) ==
LOC: EMR 12:17
PROVIDERS: EMERGENCY PHYSICIAN Emergency Medicine; FAMILY PHYSICIAN Family Medicine
DX: S43.402A Unspecified sprain of left shoulder joint, initial encounter (principal); W19.XXXA Unspecified fall, initial encounter; K21.9 Gastro-esophageal reflux disease without esophagitis; G20.A1 Parkinson's disease without dyskinesia, without mention of fluctuations; Z86.73 Personal history of transient ischemic attack (TIA), and cerebral infarction without residual deficits; Z87.891 Personal history of nicotine dependence
CPT/HCPCS: 99283; 73030

== ENCOUNTER 2024-09-14 15:08 | Emergency (ER) | payer MEDICARE, OTHER, SELFPAY ==
[2024-09-14 15:12] VITALS: BP 156/83
[2024-09-14 18:37] LABS: % Basophils 0.7 % (0-2); % Eosinophils 1.5 % (0-6); % Immature Granulocytes 0.3 % (0-0.5); % Lymphocytes 18.4 % (20.5-51.1); % Monocytes 6.7 % (1.7-9.3); % Neutrophils 72.4 % (42.2-75.2); Absolute Basophils 0.1 10^3/uL (0-0.2); Absolute Eosinophils 0.1 10^3/uL (0-0.7); Absolute Lymphocytes 1.6 10^3/uL (1.2-3.4); Absolute Monocytes 0.6 10^3/uL (0.1-0.6); Absolute Neutrophils 6.2 10^3/uL (1.4-6.5); Hematocrit 50.9 % (37.0-47.0); Mean Corp Hgb Conc. 33.4 g/dL (33.0-37.0); Mean Corpuscular Hgb 31.8 pg (27.0-31.0); Mean Corpuscular Volume 95.1 fL (81.0-99.0); Mean Platelet Volume 9.7 fL (7.4-10.4); Nucleated Red Blood Cells % 0 %; Platelet Count 266 10^3/uL (130-400); Red Blood Cell Count 5.35 10^6/uL (4.20-5.40); Red Cell Dist. Width 13.1 % (11.5-14.5); Urine Albumin 1+ (Neg - Trace); Urine Bilirubin Negative (Negative); Urine Character Clear (Clear); Urine Color Yellow; Urine Glucose Negative (Negative); Urine Ketone Negative (Negative); Urine Leukocyte 3+ (Negative); Urine Nitrite Negative (Negative); Urine Occult Blood 1+ (Negative); Urine Urobilinogen Negative (Neg - 1+); White Blood Cell Count 8.6 10^3/uL (4.8-10.8)
[2024-09-14 18:44] LABS: Urine Mucus Moderate; Urine Squamous Cell 0-2 /LPF (Few)
[2024-09-14 18:45] LABS: Urine Red Blood Cell 0-2 /HPF (0-2)
[2024-09-14 18:46] LABS: Urine White Cell 21-25 /HPF (0-5)
[2024-09-14 18:47] LABS: Urine Bacteria Moderate (Negative)
[2024-09-14 18:54] LABS: Albumin 4.7 g/dl (3.5-5.0); Carbon Dioxide 29 mmol/L (22-30); Total Bilirubin 0.7 mg/dl (0.2-1.3); Total Protein 7.7 g/dl (6.3-8.2); eGFR > 60.00
[2024-09-14 19:05] LABS: ALT (SGPT) < 10 U/L (0-35); AST (SGOT) 23 U/L (14-36); Alkaline Phosphatase 110 U/L (38-126); Blood Urea Nitrogen 17 mg/dl (7-17); Calcium 9.9 mg/dl (8.4-10.2); Chloride 108 mmol/L (98-107); Glucose 104 mg/dl (70-99); Potassium 4.2 mmol/L (3.5-5.1); Sodium 142 mmol/L (135-145)
[2024-09-14] MEDS: KEFLEX 500 MG PO (19:15)
--- NOTE | 2024-09-14 19:15 | ED.GENMED ---
History of Present Illness
General
Chief Complaint: Fall
Source: family
Exam Limitations: none
Time Seen by Provider: 09/14/24 17:19
Nursing documentation reviewed up to this point in time: agreed with
History of Present Illness
History of Present Illness:
Family states they were walking patient out of house to go to doctors appointment when she lost her balance and fell. Hit left forehead on hardwood floor. No LOC. She sustained a large lacertion to her left forehead. Also complains of pain to her
left shoulder. Incident occurred just GLUE BONE DRIER
Past History
Past History
ED Past Medical History: CVA (TIA), GERD (on pepcid), Psychiatric (a/d), Other (Parkinsons ds) and Other (Migraines); Negative Asthma or NIDDM
ED Past Surgical History: None
Social History
Tobacco: Former smoker
Alcohol: Daily (Wine 2 glasses)
Drug: None
Personal:
Living: alone
Employment: Retired
Family History
Family History: Other (Noncontributory)
Review of Systems
Review of Systems
Allergies reviewed?: Yes
All Other Systems: ROS reviewed and negative except as documented in HPI and ROS
Constitutional: Reports no symptoms
EENT: Reports no symptoms
Respiratory: Reports no symptoms
Cardiac: Reports no symptoms
ABD/GI: Reports no symptoms
: Reports no symptoms
Musculoskeletal: Reports joint pain (pain to left shoulder)
Skin: Reports other (Large laceration to left forehead)
Neurological: Reports no symptoms
Psychiatric: Reports no symptoms
Phy Exam
General Physical Exam
General Presentation: mild distress
General age: appears stated age
General Skin: warm and dry
General Habitus: normal
General Mental: alert
Cardiovascular Exam
Cardiovascular Exam: regular rate/rhythm and no edema
Gastrointestinal Exam
Gastrointestinal Exam: normal bowel sounds, non tender, soft, no organomegaly and non distended
Neurological Exam
Neurological Exam: alert, oriented x3, CN II-XII intact, no motor deficits, no sensory deficits, speech normal and normal gait
Musculoskeletal Exam
Musculoskeletal Exam: neuro vasc intact
Skin Exam
Skin Exam: normal color, warm/dry and no rash
Psychiatric Exam
Psychiatric Exam: normal mood/affect
Course
Orders/Labs/Results
Orders:
Orders
09/14/24 15:19
CT Head W/o Iv Contrast Urgent
Comment:
Reason For Exam: headstrike
Shoulder, Left 2 View CR [CR Shoulder - Left Min 2 View*] Urgent
Comment:
Reason For Exam: fall/left shoulder pain
09/14/24 18:32
Complete Blood Count/With Diff Urgent
Comprehensive Metabolic Panel Urgent
Urinalysis Reflex To Culture Urgent
Date Specimen was Collected: 09/14/24
Time Specimen was Collected: 18:27
Urine Microscopic Reflex Cult Urgent
Urine Culture Urgent
SARA Source: U
Specimen Description:
Date Specimen was Collected: 09/14/24
Time Specimen was Collected: 18:27
09/14/24 19:12
Cephalexin Monohydrate [Keflex] 500 mg PO NOW STA
Abnormal Lab Results
09/14/24
18:32
Hgb 17.0 H g/dL
(12.0-16.0)
Hct 50.9 H %
(37.0-47.0)
MCH 31.8 H pg
(27.0-31.0)
Lymphocytes % 18.4 L %
(20.5-51.1)
Chloride 108 H mmol/L
(98-107)
Glucose 104 H mg/dl
(70-99)
Ur Occult Blood Reflex 1+ A
(Negative)
Leukocyte Esterase Rfl 3+ A
(Negative)
Urine WBC (Reflex) 21-25 A /HPF
(0-5)
Urine Bacteria (Reflex) Moderate A
(Negative)
Urine Albumin (Reflex) 1+ A
(Neg - Trace)
09/14/24 18:32
09/14/24 18:32
Vital Signs
Initial and Last Documented VS:
Initial Vital Signs
Temp Pulse Resp BP Pulse Ox
97.3 F 77 19 156/83 99
09/14/24 15:12 09/14/24 15:12 09/14/24 15:12 09/14/24 15:12 09/14/24 15:12
Last Documented Vital Signs
Temp Pulse Resp BP Pulse Ox
97.3 F 77 20 156/83 99
09/14/24 15:12 09/14/24 15:12 09/14/24 18:38 09/14/24 15:12 09/14/24 15:12
Procedures
Laceration Closure
Left Forehead:
Status of Wound: clean
Description of Wound Edges: sharp
Preparation: cleaned with saline
Anesthesia: 1% Lidocaine
Revision/Debridement: routine- no revision
Wound exploration: explored to base- no FB
Type of Closure: layered closure
Skin Closure Material: 6-0 prolene (20) and 5-0 chromic gut (5)
*Radiology
Radiology exam reviewed: radiology read reviewed
*Pulse Oximetry
Patient hypoxic: no
*Critical Care Note
Total Time (30-74mins, 75-104mins- exclusive of procedures): Not Applicable
Update Note
Update Note:
Patient to ED s/p trip and fall at home. Large laceration to left forehead. CT of head without evidence of acute changes. Labs reviewed. UA concerning for UTI. WIll start keflex in ED, rx sent to pharmacy. She is discharged home and will follow
up with PCP
ED Attending Note
-
Portions of this chart may have been created with voice recognition software.� Occasional wrong word or��sound alike� substitutions may have occurred due to the inherent limitations of voice recognition software.
Discharge Plan
Departure
Patient Disposition: Home (Routine Discharge)
Date of Disposition: 09/14/24
Time of Disposition: 19:12
Patient with high blood pressure during this ER visit?: No
Condition: Good
Covid-19: Not Applicable
Discharge Problem:
Head injury, Forehead laceration, Acute UTI
Instructions: Urinary tract infections in adults, Head Injury in Adults (DC), Laceration Repair With Stitches (DC), Preventing falls in adults
Prescriptions:
New
cephalexin 500 mg capsule
500 mg PO BID 7 Days Qty: 14 0RF
No Action
aspirin 81 MG tablet,delayed release (DR/EC)
81 mg PO HS
donepezil [Aricept] 5 MG tablet
5 mg PO DAILY
cetirizine 10 mg tablet
10 mg PO NOON
carbidopa-levodopa 25-100 mg tablet
1.5 tab PO DAILY
bupropion HCl 150 mg tablet extended release 24 hr
150 mg PO DAILY
acetaminophen [Tylenol] 325 mg Tablet
650 mg PO Q6HPRN PRN (Reason: MILD PAIN)
ergocalciferol (vitamin D2) 1,250 mcg (50,000 unit) capsule
1,250 mcg PO TU@0800
carbidopa-levodopa 25-100 mg tablet
1 tab PO BID@1400,2000
venlafaxine 37.5 mg Capsule,Extended Release 24hr
112.5 mg PO DAILY Qty: 30 0RF
ciprofloxacin HCl [Cipro] 250 mg tablet
250 mg PO Q12H Qty: 20 0RF
Activity Restrictions/Additional Instructions:
Follow up with your family doctor. Sutures can be removed in 5-7 days
Interventions
Interventions:
*Risk Screen - Suicide Last Done: 09/14/24 15:12
*General Assessment Last Done: 09/14/24 18:38
*Neglect/Abuse Screening Last Done: 09/14/24 15:12
*ED- Fall Risk Assessment Last Done: 09/14/24 18:38
*ED COVID-19 Vaccine History Last Done: 09/14/24 18:38
ED-Musculoskeletal Assessment Last Done: 09/14/24 18:38
ED- Neurological Assessment Last Done: 09/14/24 18:38
ED-Skin Assessment Last Done: 09/14/24 18:38
Discharge Date and Time
Print Language: SRI LANKAN
Musculoskeletal Injury Exam
Musculoskeletal Injury Exam
Left Shoulder:
Pain with Movement?: Moderate
Tender to palpation?: Moderate
Soft tissue swelling?: None
External deformity and angulation?: None
Joint effusion?: None
Contusion?: Moderate
Hematoma-local bleeding into tissue?: None
Strain- Sprain- Tear (Connective tissue injury)?: Moderate
Crepitus with movement?: No
Joint instability?: No
Malalignment/deformity?: No
Range of motion: Limited
Distal skin color and temperature: normal-warm & good color
Capillary Refill: normal
Normal distal neurovascular exam?: Yes
Peripheral Pulses: radial (left): 3+
Skin Exam
Laceration
Left Forehead:
Length in cm: 5
Orientation: vertical
Type of Laceration: layered
Any active bleeding?: low grade venous oozing
Distal skin color and temperature: normal-warm & good color
Normal distal neurovascular exam: Yes
Range of motion: full
[2024-09-14 19:33] VITALS: BP 158/89
== END 2024-09-14 19:35 | disposition home or self-care (01) ==
LOC: EMR 15:08
PROVIDERS: Nurse Practitioner; EMERGENCY PHYSICIAN Emergency Medicine
DX: S01.81XA Laceration without foreign body of other part of head, initial encounter (principal); S09.90XA Unspecified injury of head, initial encounter; M25.512 Pain in left shoulder; M25.562 Pain in left knee; M25.561 Pain in right knee; N39.0 Urinary tract infection, site not specified; W10.9XXA Fall (on) (from) unspecified stairs and steps, initial encounter; K21.9 Gastro-esophageal reflux disease without esophagitis; F32.A Depression, unspecified; F41.9 Anxiety disorder, unspecified; I10 Essential (primary) hypertension; E78.5 Hyperlipidemia, unspecified; K57.90 Diverticulosis of intestine, part unspecified, without perforation or abscess without bleeding; M19.90 Unspecified osteoarthritis, unspecified site; G20.A1 Parkinson's disease without dyskinesia, without mention of fluctuations; G43.909 Migraine, unspecified, not intractable, without status migrainosus; Z86.73 Personal history of transient ischemic attack (TIA), and cerebral infarction without residual deficits; Z87.891 Personal history of nicotine dependence
CPT/HCPCS: 99284; 12051; 70450; 73030; 80053; 81003; 81015; 85025; 87086